=== PATIENT | female | born 1975 | race Caucasian/White ===

== ENCOUNTER → 2017-09-07 | Outpatient (CLI) | payer BC ==
--- NOTE | 2017-09-09 09:49 | MM ---
Reason for exam: screening (asymptomatic). Last mammogram was performed 1 year and 6 months ago. History: Family history of breast cancer in paternal aunt at age 58. Benign MG stereo VAD BX addl RT of the right breast, May 19, 2014. Benign MG stereo VAD BX RT of the right breast, May 19, 2014. Reductions of both breasts, 2011. Took hormonal contraceptives for 7 years. Physical Findings: A clinical breast exam by your physician is recommended on an annual basis and results should be correlated with mammographic findings. MG Screening Mammo w CAD Bilateral CC and MLO view(s) were taken. Prior study comparison: March 17, 2016, bilateral MG screening mammo w CAD. February 19, 2015, right breast MG 3d diag mammo w/cad RT. There are scattered fibroglandular densities. Areas of benign fat necrosis superior right breast. New central 8mm mass left breast at a middle depth. ASSESSMENT: Incomplete: need additional imaging evaluation, BI-RAD 0 RECOMMENDATION: Special view mammogram and ultrasound of the left breast. [facility] will attempt to contact patient to return for supplemental views and ultrasound.
== END | disposition home or self-care (01) ==
LOC: RADMAMWWP 16:23
PROVIDERS: ATTEND Obstetrics & Gynecology
DX: Z12.31 Encounter for screening mammogram for malignant neoplasm of breast (principal)
CPT/HCPCS: 77067

== ENCOUNTER → 2017-09-22 | Outpatient (CLI) | payer BC ==
--- NOTE | 2017-09-29 09:50 | USB ---
Reason for exam: additional evaluation requested from abnormal screening. History: Family history of breast cancer in paternal aunt at age 58. Benign MG stereo VAD BX addl RT of the right breast, May 19, 2014. Benign MG stereo VAD BX RT of the right breast, May 19, 2014. Reductions of both breasts, 2011. Took hormonal contraceptives for 7 years. Physical Findings: Nurse did not find any significant physical abnormalities on exam. US Breast Workup LT Left limited breast ultrasound including focal area of concern, retroareolar and axilla demonstrates a 0.4 x 0.3 x 0.4cm mixed lesion at 12 o'clock, correlates with mammographic findings. These results were verbally communicated with the patient and result sheet given to the patient on 09/22/17. ASSESSMENT: Probably benign, BI-RAD 3 RECOMMENDATION: Follow-up diagnostic mammogram and ultrasound of the left breast in 6 months.
== END | disposition home or self-care (01) ==
LOC: RADMAMWWP 14:45
PROVIDERS: ATTEND Obstetrics & Gynecology
DX: R92.8 Other abnormal and inconclusive findings on diagnostic imaging of breast (principal)

== ENCOUNTER → 2018-03-31 | Outpatient (CLI) | payer BC ==
--- NOTE | 2018-04-01 07:52 | MM ---
Reason for exam: follow-up at short interval from prior study. Last mammogram was performed 7 months ago. History: Family history of breast cancer in paternal aunt at age 58. Benign MG stereo VAD BX addl RT of the right breast, May 19, 2014. Benign MG stereo VAD BX RT of the right breast, May 19, 2014. Reductions of both breasts, 2011. Took hormonal contraceptives for 7 years. Physical Findings: Nurse Summary: 0.5 x 1cm nodule in the left breast at 12 o'clock (nurse ts). MG 3D Diag Mammo W/Cad LT CC and MLO view(s) were taken of the left breast. Prior study comparison: September 07, 2017, bilateral MG screening mammo w CAD. March 17, 2016, bilateral MG screening mammo w CAD. There are scattered fibroglandular densities. The previous central nodule is not seen presently. Palpable marker at 12 o'clock. These results were verbally communicated with the patient and result sheet given to the patient on 03/31/18. ASSESSMENT: Incomplete: need additional imaging evaluation, BI-RAD 0 RECOMMENDATION: Ultrasound of the left breast. (9-3 o'clock, including palpable)
--- NOTE | 2018-04-01 07:53 | USB ---
Reason for exam: additional evaluation requested from abnormal screening. History: Family history of breast cancer in paternal aunt at age 58. Benign MG stereo VAD BX addl RT of the right breast, May 19, 2014. Benign MG stereo VAD BX RT of the right breast, May 19, 2014. Reductions of both breasts, 2011. Took hormonal contraceptives for 7 years. US Breast Limited LT Left limited breast ultrasound including focal area of concern, retroareolar and axilla demonstrates no cystic or solid lesion seen. Scanned 9-3 o'clock including the 12 o'clock palpable site. An additional precautionary 6 month follow up mammogram recommended. These results were verbally communicated with the patient and result sheet given to the patient on 03/31/18. ASSESSMENT: Probably benign, BI-RAD 3 RECOMMENDATION: Follow-up diagnostic mammogram of both breasts in 6 months.
== END | disposition home or self-care (01) ==
LOC: RADMAMWWP 15:41
PROVIDERS: ATTEND Family Medicine
DX: R92.8 Other abnormal and inconclusive findings on diagnostic imaging of breast (principal)
CPT/HCPCS: 77061; 77065

== ENCOUNTER → 2018-11-17 | Outpatient (CLI) | payer BC ==
--- NOTE | 2018-11-17 16:49 | XR ---
EXAMINATION TYPE: XR chest 2V DATE OF EXAM: 11/17/2018 COMPARISON: None HISTORY: Rib pain TECHNIQUE: Frontal and lateral views of the chest are obtained. FINDINGS: Heart and mediastinum are normal. Lungs are clear. Diaphragm is normal. Bony thorax appear s normal. IMPRESSION: Normal chest.
--- NOTE | 2018-11-18 09:39 | MM ---
Reason for exam: additional evaluation requested from prior study. Last mammogram was performed 8 months ago. History: Family history of breast cancer in paternal aunt at age 58. Benign MG stereo VAD BX addl RT of the right breast, May 19, 2014. Benign MG stereo VAD BX RT of the right breast, May 19, 2014. Reductions of both breasts, 2011. Took hormonal contraceptives for 7 years. Physical Findings: Nurse did not find any significant physical abnormalities on exam. MG 3D Diag Mammo W/Cad BILL Bilateral CC and MLO view(s) were taken. Prior study comparison: March 31, 2018, left breast MG 3d diag mammo w/cad LT. September 07, 2017, bilateral MG screening mammo w CAD. The breast tissue is heterogeneously dense. This may lower the sensitivity of mammography. Finding: There is a 5 mm equal density (isodense), circumscribed round mass located 7 cm from the nipple in the upper outer quadrant, middle position of the right breast. New finding since March 31, 2018 and September 07, 2017. These results were verbally communicated with the patient and result sheet given to the patient on 11/17/18. ASSESSMENT: Incomplete: need additional imaging evaluation, BI-RAD 0 RECOMMENDATION: Ultrasound of the right breast.
--- NOTE | 2018-11-18 09:41 | USB ---
Reason for exam: additional evaluation requested from abnormal screening. History: Family history of breast cancer in paternal aunt at age 58. Benign MG stereo VAD BX addl RT of the right breast, May 19, 2014. Benign MG stereo VAD BX RT of the right breast, May 19, 2014. Reductions of both breasts, 2011. Took hormonal contraceptives for 7 years. US Breast Limited RT Right limited breast ultrasound including focal area of concern, retroareolar and axilla demonstrates a 4 x 3 x 6mm lobular, cystic lesion at 11 o'clock and a 6 x 5 x 5mm oval, calcification at 12 o'clock. These results were verbally communicated with the patient and result sheet given to the patient on 11/17/18. ASSESSMENT: Probably benign, BI-RAD 3 RECOMMENDATION: Follow-up diagnostic mammogram and ultrasound of the right breast in 6 months.
== END | disposition home or self-care (01) ==
LOC: RADMAMWWP 15:18
PROVIDERS: ATTEND Family Medicine
DX: R92.8 Other abnormal and inconclusive findings on diagnostic imaging of breast (principal); R07.81 Pleurodynia
CPT/HCPCS: 71046; 77062; 77066

== ENCOUNTER → 2019-03-22 | Outpatient (CLI) | payer BC ==
[2019-03-22 14:13] VITALS: BP 134/98; PULSE 84; TEMP 98; BMI 28.0
--- NOTE | 2019-03-22 14:48 | P.BASOAP ---
Subjective Progress Note Date: 03/22/19 Principal diagnosis: Morbid obesity Patient returns for adjustment of her lap band. Has foot surgery next week. Needs to have her band emptied for that upcoming surgery. She is not sure how much fluid is in the band. Otherwise doing well. Objective - Vital Signs Vital signs: Vital Signs Temp 98.0 F 03/22/19 14:09 Pulse 84 03/22/19 14:09 Resp BP 134/98 03/22/19 14:09 Pulse Ox Intake & Output 03/21/19 03/22/19 03/22/19 18:59 06:59 18:59 Weight 91.172 kg - Exam Abdomen: Soft, nontender, nondistended Assessment/Plan (1) Morbid obesity Narrative/Plan: Patient needs her band empty for upcoming foot surgery.The patient's lap band port was palpated. The site was aseptically prepped. The Castillo needle was advanced into the port. A total of 4 ml of fluid was evacuated. Patient's band appears empty at this time. Pressure was held and a sterile dressing was applied. Plan: Date: 03/22/19 Initial Weight: 136.078 kg Initial BMI: 41.8 Current Weight: 91.172 kg Current BMI: 28.0 Type of Surgery: Total Volume in Band: 0 Previous Volume: 4 Volume Removed: 4 Volume Added: Band Size:
== END ==
LOC: BARWHC3 13:48
PROVIDERS: ATTEND Surgery
DX: E66.01 Morbid (severe) obesity due to excess calories (principal); Z68.28 Body mass index [BMI] 28.0-28.9, adult
CPT/HCPCS: 99212

== ENCOUNTER → 2019-04-19 | Outpatient (CLI) | payer BC ==
[2019-04-19 16:02] VITALS: BP 131/87; PULSE 85; RESP 16; TEMP 98.4; BMI 29.2
--- NOTE | 2019-04-19 21:20 | P.BASOAP ---
Subjective Progress Note Date: 04/19/19 Principal diagnosis: Morbid obesity Patient here today for band adjustment. Last seen 03/22. Underwent band fluid removal for foot surgery. She has gained some weight. She would like fluid re- added. Objective - Vital Signs Vital signs: Vital Signs Temp 98.4 F 04/19/19 15:56 Pulse 85 04/19/19 15:56 Resp 16 04/19/19 15:56 BP 131/87 04/19/19 15:56 Pulse Ox Intake & Output 04/19/19 04/19/19 04/20/19 06:59 18:59 06:59 Weight 95.254 kg - Exam Abdomen: Soft, nontender, nondistended Assessment/Plan (1) Morbid obesity Narrative/Plan: Patient requesting band adjustment. Is currently empty. Had 4 cc removed. We'll add 3 cc of saline at this time. Follow up one month. Plan: Date: 04/19/19 Initial Weight: 136.078 kg Initial BMI: 41.8 Current Weight: 95.254 kg Current BMI: 29.2 Type of Surgery: Total Volume in Band: 3 Previous Volume: 0 Volume Removed: Volume Added: 3 Band Size:
== END | disposition home or self-care (01) ==
LOC: BARWHC3 15:30
PROVIDERS: ATTEND Surgery
DX: Z46.51 Encounter for fitting and adjustment of gastric lap band (principal); E66.01 Morbid (severe) obesity due to excess calories; Z68.29 Body mass index [BMI] 29.0-29.9, adult; Z98.84 Bariatric surgery status
CPT/HCPCS: 99211

== ENCOUNTER → 2019-05-31 | Outpatient (CLI) | payer BC ==
[2019-05-31 15:40] VITALS: BP 139/89; PULSE 93; RESP 16; TEMP 98.4; BMI 29.7
--- NOTE | 2019-05-31 21:19 | P.BASOAP ---
Subjective Progress Note Date: 05/31/19 Principal diagnosis: Morbid obesity Patient returns for evaluation. complaining of back pain. wants the lap band to go from 3-4. no nausea or vomiting. No gerd. Objective - Vital Signs Vital signs: Vital Signs Temp 98.4 F 05/31/19 15:38 Pulse 93 05/31/19 15:38 Resp 16 05/31/19 15:38 BP 139/89 05/31/19 15:38 Pulse Ox Intake & Output 05/31/19 05/31/19 06/01/19 06:59 18:59 06:59 Weight 96.615 kg - Exam Abdomen: Soft, nontender, nondistended Assessment/Plan (1) Morbid obesity Narrative/Plan: The patient's lap band port was palpated. The site was aseptically prepped. The Castillo needle was advanced into the port. Aspiration took place. A total of 1ml of fluid was Added. Pressure was held and a sterile dressing was applied. Plan: Date: 05/31/19 Initial Weight: 136.078 kg Initial BMI: 41.8 Current Weight: 96.615 kg Current BMI: 29.7 Type of Surgery: Adjustable Gastric Banding Total Volume in Band: 4 Previous Volume: Volume Removed: Volume Added: 1 Band Size:
== END | disposition home or self-care (01) ==
LOC: BARWHC3 15:09
PROVIDERS: ATTEND Surgery
DX: Z46.51 Encounter for fitting and adjustment of gastric lap band (principal); E66.01 Morbid (severe) obesity due to excess calories; Z98.84 Bariatric surgery status; Z68.29 Body mass index [BMI] 29.0-29.9, adult
CPT/HCPCS: 99212

== ENCOUNTER → 2019-06-15 | Outpatient (CLI) | payer BC | END | disposition home or self-care (01) | LOC: LABWHC1 13:54 | PROVIDERS: ATTEND Physician Assistant | DX: L51.9 Erythema multiforme, unspecified (principal) | CPT/HCPCS: 36415; 86038 ==

== ENCOUNTER → 2020-02-17 | Outpatient (CLI) | payer BC ==
--- NOTE | 2020-02-20 09:37 | MM ---
Reason for exam: additional evaluation requested from prior study. Last mammogram was performed 1 year and 3 months ago. History: Family history of breast cancer in paternal aunt at age 58. Benign MG stereo VAD BX addl RT of the right breast, May 19, 2014. Benign MG stereo VAD BX RT of the right breast, May 19, 2014. Reductions of both breasts, 2011. Took hormonal contraceptives for 7 years. Physical Findings: Nurse did not find any significant physical abnormalities on exam. MG 3D Diag Mammo W/Cad BILL Bilateral CC and MLO view(s) were taken. Prior study comparison: November 17, 2018, bilateral MG 3d diag mammo w/cad BILL. March 31, 2018, left breast MG 3d diag mammo w/cad LT. The breast tissue is heterogeneously dense. This may lower the sensitivity of mammography. Finding: There are typically benign course calcifications in the upper quadrant, posterior position of the right breast at 12 o'clock. Previous mammotome biopsy in the right breast. There is a chronic nodularity in the right breast. No significant changes in finding since November 17, 2018 and March 31, 2018. These results were verbally communicated with the patient and result sheet given to the patient on 02/17/20. ASSESSMENT: Benign, BI-RAD 2 RECOMMENDATION: Routine screening mammogram of both breasts in 1 year. Manage on a clinical basis with regard to pain.
== END | disposition home or self-care (01) ==
LOC: RADMAMWWP 14:30
PROVIDERS: ATTEND Obstetrics & Gynecology
DX: N64.4 Mastodynia (principal)
CPT/HCPCS: 77062; 77066

== ENCOUNTER → 2021-03-06 | Outpatient (CLI) | payer BC ==
--- NOTE | 2021-03-07 08:54 | US ---
EXAMINATION TYPE: US pelvic complete DATE OF EXAM: 03/06/2021 COMPARISON: NONE CLINICAL HISTORY: 45-year-old female N83.209 Unspecified ovarian cyst, unspecified side. Patient had US approximately 3 months ago at another hospital with findings right ovarian cyst and uterine fibroi d; denies pain; ; endometrial ablation; C section; TECHNIQUE: Transabdominal sonographic images of the pelvis were acquired. Transvaginal sonographic i mages were medically necessary to better assess the following anatomy: uterine myometrium and ovaries Date of LMP: over 7 years ago FINDINGS: EXAM MEASUREMENTS: Uterus: 6.9 x 5.2 x 2.7 cm Endometrial Stripe: Not appreciable compatible with prior endometrial ablation Right Ovary: 4.0 x 1.8 x 1.9 cm Left Ovary: 2.7 x 1.2 x 1.1 cm 1. Uterus: Anteverted; uterine fibroid superior right myometrium =1.0 x 1.3 x 0.8cm; complex microcy stic area at the cervix and lower uterine segment measuring 1.6 x 0.6 x 0.6cm; there is an adjacent 7 mm cervical nabothian cyst. 2. Endometrium: NA 3. Right Ovary: small follicles seen 4. Left Ovary: small follicles seen 5. Bilateral Adnexa: wnl 6. Posterior cul-de-sac: wnl IMPRESSION: 1. The endometrial stripe is not well appreciated. This is compatible with patient's prior endometria l ablation. 2. Microcystic area at the cervix and lower uterine segment measuring 1.6 x 0.6 cm. Findings could re present numerous small cervical nabothian cysts. Correlate with direct inspection and Pap smear to ex clude a more aggressive etiology such as cervical carcinoma/adenoma malignum. 3. An exophytic 1.3 cm fibroid from the right uterine fundus. 4. Small follicles in the ovaries. No dominant cyst.
== END | disposition home or self-care (01) ==
LOC: RADUSWWP 15:57
PROVIDERS: ATTEND Family Medicine
DX: D25.9 Leiomyoma of uterus, unspecified (principal)
CPT/HCPCS: 76830; 76856

== ENCOUNTER → 2021-10-02 | Outpatient (CLI) | payer BC ==
--- NOTE | 2021-10-03 19:30 | MM ---
Reason for Exam: Screening (asymptomatic). Last mammogram was performed 1 year(s) and 8 month(s) ago. Patient History: Menarche at age 10. First Full-Term at age 19. Patient used Hormonal Contraceptives for 7 years. 2011, Bilateral Reduction. 05/19/2014, Benign Core Biopsy on the right side. 05/19/2014, Benign Core Biopsy on the right side. Paternal aunt had breast cancer, age 58. Mother had breast cancer, age 69. Risk Values: Flower 5 year model risk: 3.3%. NCI Lifetime model risk: 24.7%. Prior Study Comparison: 03/31/2018 Left Diagnostic Mammogram, [facility]. 11/17/2018 Bilateral Diagnostic Mammogram, [facility]. 02/17/2020 Bilateral Diagnostic Mammogram, [facility]. Tissue Density: There are scattered fibroglandular densities. Findings: Analyzed By CAD. Benign oil cyst and fat necrosis calcifications posterior upper outer quadrant right breast. A microclip far posterior medial right breast from prior biopsy. Chronic nodularity lateral left CC view. No significant change from prior exams. Overall Assessment: Benign, BI-RAD 2 Management: Screening Mammogram of both breasts in 1 year. Annual clinical breast exam by your physician. Also, monthly self breast exams are recommended. A negative mammogram should not preclude additional follow-up of suspicious palpable abnormalities. Electronically signed and approved by: Katherine Mayer M.D. Radiologist
== END | disposition home or self-care (01) ==
LOC: RADMAMWWP 16:28
PROVIDERS: ATTEND Obstetrics & Gynecology
DX: Z12.31 Encounter for screening mammogram for malignant neoplasm of breast (principal); Z80.3 Family history of malignant neoplasm of breast
CPT/HCPCS: 77063; 77067

== ENCOUNTER → 2023-03-27 | Outpatient (CLI) | payer BC ==
--- NOTE | 2023-03-30 07:48 | MM ---
Reason for Exam: Screening (asymptomatic). Last mammogram was performed 1 year(s) and 5 month(s) ago. Patient History: Menarche at age 10. First Full-Term at age 19. Patient used Hormonal Contraceptives for 7 years. 2011, Bilateral Reduction. 05/19/2014, Benign Core Biopsy on the right side. 05/19/2014, Benign Core Biopsy on the right side. Paternal aunt had breast cancer, age 58. Mother had breast cancer, age 69. Risk Values: Flower 5 year model risk: 3.1%. NCI Lifetime model risk: 24.2%. Prior Study Comparison: 11/17/2018 Bilateral Diagnostic Mammogram, [facility]. 02/17/2020 Bilateral Diagnostic Mammogram, [facility]. 10/02/2021 Bilateral MG 3D screening mammo w/cad, [facility]. Tissue Density: There are scattered fibroglandular densities. Findings: Analyzed By CAD. There is no suspicious group of microcalcifications or new suspicious mass. Benign-appearing calcifications right breast. Overall Assessment: Benign, BI-RAD 2 Management: Screening Mammogram of both breasts in [address] [facility] will attempt to contact patient to return for supplemental views and ultrasound if indicated. Patient should continue monthly self-breast exams. A clinical breast exam by your physician is recommended on an annual basis. This exam should not preclude additional follow-up of suspicious palpable abnormalities. Note on Flower scores and lifetime risk: 1. A Flower score greater than 3% is considered moderate risk. If this is the case, consider specialist referral to assess eligibility for a risk reducing agent. 2. If overall lifetime risk for the development of breast cancer is 20% or higher, the patient may qualify for future screening with alternating mammogram and breast MRI. Electronically signed and approved by: Marcus Peraza DO
== END | disposition home or self-care (01) ==
LOC: RADMAMWWP 10:10
PROVIDERS: ATTEND Family Medicine
DX: Z12.31 Encounter for screening mammogram for malignant neoplasm of breast (principal); Z80.3 Family history of malignant neoplasm of breast
CPT/HCPCS: 77063; 77067

== ENCOUNTER → 2024-03-28 | Outpatient (CLI) | payer BC ==
--- NOTE | 2024-03-30 16:22 | MM ---
Reason for Exam: Screening (asymptomatic). Last screening mammogram was performed 12 month(s) ago. Patient History: Menarche at age 10. First Full-Term at age 19. Patient used Hormonal Contraceptives for 7 years. 2011, Bilateral Reduction. 05/19/2014, Benign Core Biopsy on the right side. 05/19/2014, Benign Core Biopsy on the right side. Paternal aunt had breast cancer, age 58. Mother had breast cancer, age 69. Last menstrual period: 09/16/2015 Risk Values: Flower 5 year model risk: 2.8%. NCI Lifetime model risk: 23.6%. Prior Study Comparison: 02/17/2020 Bilateral Diagnostic Mammogram, [facility]. 10/02/2021 Bilateral MG 3D screening mammo w/cad, [facility]. 03/27/2023 Bilateral MG 3D screening mammo w/cad, [facility]. Tissue Density: There are scattered areas of fibroglandular density. Findings: Analyzed By CAD. A small lobulated nodular asymmetry central left breast middle depth not seen on the older priors and appears larger from the recent prior. This may represent a benign etiology given low density. Further evaluation recommended. Microclip right breast from prior biopsy. A few areas of fat necrosis calcification are redemonstrated. Otherwise, no significant change. Overall Assessment: Incomplete: need additional imaging evaluation, BI-RAD 0 Management: Special View Mammogram of the left breast. Diagnostic Breast Ultrasound of the left breast. [facility] will attempt to contact patient to return for supplemental views and ultrasound if indicated. Note on Flower scores and lifetime risk: 1. A Flower score greater than 3% is considered moderate risk. If this is the case, consider specialist referral to assess eligibility for a risk reducing agent. 2. If overall lifetime risk for the development of breast cancer is 20% or higher, the patient may qualify for future screening with alternating mammogram and breast MRI. [facility], , 03/30/2024 4:20 PM. Electronically signed and approved by: Katherine Mayer M.D. Radiologist
== END | disposition home or self-care (01) ==
LOC: RADMAMWWP 16:40
PROVIDERS: ATTEND Obstetrics & Gynecology
DX: Z12.31 Encounter for screening mammogram for malignant neoplasm of breast (principal); R92.323 Mammographic fibroglandular density, bilateral breasts; Z80.3 Family history of malignant neoplasm of breast
CPT/HCPCS: 77063; 77067

== ENCOUNTER → 2024-04-11 | Outpatient (CLI) | payer BC ==
--- NOTE | 2024-04-11 10:01 | MM ---
Reason for Exam: Additional evaluation requested from abnormal screening. Last screening mammogram was performed less than 1 month ago. Patient History: Menarche at age 10. First Full-Term at age 19. Patient used Hormonal Contraceptives for 7 years. 2011, Bilateral Reduction. 05/19/2014, Benign Core Biopsy on the right side. 05/19/2014, Benign Core Biopsy on the right side. Paternal aunt had breast cancer, age 58. Mother had breast cancer, age 69. Risk Values: Flower 5 year model risk: 2.8%. NCI Lifetime model risk: 23.6%. Prior Study Comparison: 10/02/2021 Bilateral MG 3D screening mammo w/cad, [facility]. 03/27/2023 Bilateral MG 3D screening mammo w/cad, [facility]. 03/28/2024 Bilateral MG 3D screening mammo w/cad, [facility]. Tissue Density: Left: The breasts are heterogeneously dense, which may obscure small masses. Findings: Analyzed By CAD. There is a persistent equal, round, circumscribed mass in the upper outer anterior left breast at 6 o'clock, 4 cm from the nipple. Finding is new when compared to 03/27/23. Overall Assessment: Incomplete: need additional imaging evaluation, BI-RAD 0 Management: Diagnostic Breast Ultrasound of the left breast. Electronically signed and approved by: Gabriele Burch D.O. Radiologis
--- NOTE | 2024-04-11 14:21 | USB ---
Reason for Exam: Additional evaluation requested from abnormal screening. Patient History: Menarche at age 10. First Full-Term at age 19. Patient used Hormonal Contraceptives for 7 years. 2011, Bilateral Reduction. 05/19/2014, Benign Core Biopsy on the right side. 05/19/2014, Benign Core Biopsy on the right side. Paternal aunt had breast cancer, age 58. Mother had breast cancer, age 69. Risk Values: Flower 5 year model risk: 2.8%. NCI Lifetime model risk: 23.6%. Technique: Method: Whole Breast Handheld. Prior Study Comparison: 10/02/2021 Bilateral MG 3D screening mammo w/cad, [facility]. 03/27/2023 Bilateral MG 3D screening mammo w/cad, [facility]. 03/28/2024 Bilateral MG 3D screening mammo w/cad, [facility]. Findings: The whole breast of the left breast, the axilla of the left breast and the retroareolar of the left breast were scanned. At the 3:00 position 4 cm nipple appears to correlate with the mammographic finding is a simple appearing cyst with good through transmission posterior wall enhancement and smooth borders measuring 0.4 x 0.2 x 0.3 cm.. Overall Assessment: Benign, BI-RAD 2 Management: Screening Mammogram of both breasts in 1 year. A clinical breast exam by your physician is recommended on an annual basis and results should be correlated with mammographic findings. This exam should not preclude additional follow-up of suspicious palpable abnormalities. Results were given to the patient verbally at the time of exam. [facility], , 04/11/2024 11:37 AM. Electronically signed and approved by: Gabriele Burch D.O. Radiologis
== END | disposition home or self-care (01) ==
LOC: RADMAMWWP 09:25
PROVIDERS: ATTEND Obstetrics & Gynecology
DX: R92.8 Other abnormal and inconclusive findings on diagnostic imaging of breast (principal); R92.333 Mammographic heterogeneous density, bilateral breasts; Z80.3 Family history of malignant neoplasm of breast
CPT/HCPCS: 77061; 77065

== ENCOUNTER 2024-10-11 08:57 | Day surgery (SDC) | payer BC ==
[2024-10-07 11:36] VITALS: BMI 30.7
[~2024-10-11 08:57] MED LIST: LACTATED RINGERS 1,000 ML IV SCH
[2024-10-11 09:47] VITALS: RESP 16; TEMP 97.1
[2024-10-11] MEDS: IV FLUID CONTINUATION 1,000 ML IV ONE (09:56)
[2024-10-11] MEDS ORDERED: PROPOFOL 10 MG/ML 20 ML VIAL IV ONE (10:21)
[2024-10-11] MEDS ORDERED: LIDOCAINE 1% INJ 10MG/ML (20 ML MDV) ONE (10:21)
--- NOTE | 2024-10-11 10:25 | P.GSHP ---
History of Present Illness H&P Date: 10/11/24 Chief Complaint: Colon cancer screening 49-year-old female here for colonoscopy. Last colonoscopy 7 years ago or so. She thinks it was normal. No bowel complaints. No family history of colon cancer. Past Medical History Past Medical History: No Reported History, Osteoarthritis (OA) Additional Past Medical History / Comment(s): generalized entire body arthritis History of Any Multi-Drug Resistant Organisms: None Reported Past Surgical History: Bariatric Surgery, Breast Surgery, Orthopedic Surgery Additional Past Surgical History / Comment(s): lap band 2005 (replaced in 2006 d/t prolapse), bilateral breast reduction/lift, Left heel spur, Right leg vein removal x2, x1(1994), Right knee surgery. Past Anesthesia/Blood Transfusion Reactions: No Reported Reaction Additional Past Anesthesia/Blood Transfusion Reaction / Comment(s): No blood transfusion to date Smoking Status: Vaper - Past Family History Father Family Medical History: Hyperlipidemia, Hypertension Mother Family Medical History: Diabetes Mellitus, Hyperlipidemia, Hypertension Additional Family Medical History / Comment(s): Type 2 DM Medications and Allergies Home Medications Medication Instructions Recorded Confirmed Type Ibuprofen [Motrin] 400 mg PO Q8HR PRN 10/07/24 10/07/24 History hydroCHLOROthiazide 25 mg PO BID 10/07/24 10/11/24 History Allergies Allergy/AdvReac Type Severity Reaction Status Date / Time No Known Allergies Allergy Verified 10/11/24 09:44 Surgical - Exam Vital Signs Temp Pulse Resp BP Pulse Ox 97.1 F L 71 16 15/91 98 10/11/24 09:45 10/11/24 09:45 10/11/24 09:45 10/11/24 09:45 10/11/24 09:45 Physical exam: General: Well-developed, well-nourished HEENT: Normocephalic, sclerae nonicteric Abdomen: Nontender, nondistended Extremities: No edema Neuro: Alert and oriented Assessment and Plan (1) Colon cancer screening Narrative/Plan: Will proceed with colonoscopy at this time. Current Visit: Yes Status: Acute Code(s): Z12.11 - ENCOUNTER FOR SCREENING FOR MALIGNANT NEOPLASM OF COLON SNOMED Code(s): 528955746
--- NOTE | 2024-10-11 10:42 | P.PCN ---
Date of Procedure: 10/11/24 Procedure(s) Performed: PREOPERATIVE DIAGNOSIS: Colon cancer screening POSTOPERATIVE DIAGNOSIS: Mild diverticulosis PROCEDURE: Colonoscopy ANESTHESIA: MAC SURGEON: Janusz Wright M.D. SPECIMENS: None ENDOSCOPIC PROCEDURE: The patient was placed on the endoscopy table in the left decubitus position. The Olympus colonoscope was inserted into the anus and passed under direct visualization to the base of the cecum. The appendiceal orifice was visualized. From that point the scope was slowly withdrawn inspecting all surfaces carefully. There were no neoplastic inflammatory or polypoid lesions throughout the cecum, ascending, transverse, descending, sigmoid and rectum. There was mild scattered diverticulosis noted. Digital rectal examination was normal. The patient was taken to the recovery room in stable condition per anesthesia guidelines. RECOMMENDATIONS: Resume diet. Repeat colonoscopy 10 years.
[2024-10-11 11:00] VITALS: BP 132/67; PULSE 78
== END 2024-10-11 11:17 | disposition home or self-care (01) ==
LOC: ORWHC2ENDO 08:57
PROVIDERS: ATTEND Surgery
DX: Z12.11 Encounter for screening for malignant neoplasm of colon (principal); K57.30 Diverticulosis of large intestine without perforation or abscess without bleeding
CPT/HCPCS: 45378; J2003; J2704